=== PATIENT | male | born 1965 | race Caucasian/White ===

== ENCOUNTER 2024-04-16 01:10 | Emergency (ER) | payer OTHER ==
[~2024-04-16] VITALS: Ht 172.7 cm; Wt 98.0 kg
[~2024-04-16 01:10] MED LIST: AUGMENTIN 875-1 EACH PO; CARBAMAZEPINE200 MG PO; OSTEO BI-FLEX1 EACH PO; PROMETHAZINE-COD5 ML PO; SUDOGEST60 MG PO; ZOCOR40 MG PO
[2024-04-16] MEDS ORDERED: LEVOTHYROXINE75 MCG PO (01:31)
[2024-04-16] MEDS ORDERED: ATORVASTATIN CA80 MG PO (01:31)
[2024-04-16] MEDS ORDERED: FLUTICASONE PRO12 GM INH (01:32)
[2024-04-16] MEDS ORDERED: KETOROLAC TROMETHAMINE 15 MG/ML VIAL IV ONE (01:45)
[2024-04-16] MEDS ORDERED: LACTATED RINGER'S 1,000 ML IV ONE (01:45)
[2024-04-16] MEDS ORDERED: FAMOTIDINE 20 MG/ 2 ML VIAL IV ONE (01:45)
[2024-04-16 02:03] LABS: HEMATOCRIT 47.6 % (35.0-50.0); HEMOGLOBIN 16.3 g/dL (12.0-18.0); MCH 32.2 (27-36); MCHC 34.2 g/dl (30-36); MCV 94.3 fl (81-99); PLATELET COUNT 401 K/uL (140-440); RBC 5.04 M/ul (4.3-5.7)
[2024-04-16 02:19] LABS: ALBUMIN 3.5 g/dL (3.4-5.0); ALBUMIN/GLOBULIN RATIO 0.8 (1.1-2.4); ANION GAP 10.8 (7-21); BILIRUBIN, TOTAL 0.5 ng/dL (0.2-1.0); BUN/CREATININE RATIO 9.67 (6.0-28.6); CALCIUM 9.2 mg/dL (8.5-10.1); CREATININE, SERUM 1.24 mg/dL (0.70-1.30); POTASSIUM 3.8 mmol/L (3.5-5.1); PROTEIN, TOTAL 7.9 g/dL (6.4-8.2)
[2024-04-16 02:21] LABS: BASOPHILS, MANUAL DIFF 1; EOSINOPHILS, MANUAL DIFF 1; LYMPHOCYTES, MANUAL DIFF 24; MONOCYTES, MANUAL DIFF 12; NEUTROPHILS, MANUAL DIFF 62
[2024-04-16] MEDS ORDERED: levoFLOXacin 750 MG TAB PO ONE (03:15)
[2024-04-16] MEDS ORDERED: metroNIDAZOLE 250 MG TAB PO ONE (03:15)
[2024-04-16] MEDS ORDERED: METRONIDAZOLE500 MG PO (03:17)
[2024-04-16] MEDS ORDERED: LEVOFLOXACIN750 MG PO (03:17)
[2024-04-16 03:25] LABS: BILIRUBIN, URINE NEGATIVE (negative); BLOOD/HGB, URINE TRACE-I (Negative); KETONE, URINE NEGATIVE (Negative); LEUK ESTERASE, URINE NEGATIVE (negative); NITRITE, URINE NEGATIVE (negative); PH, URINE 5.5 (5-7)
[2024-04-16 03:30] VITALS: BP 128/68
[2024-04-16 03:32] LABS: BACTERIA, URINE RARE /hpf (negative); CASTS, URINE NONE SEEN \\lpf; COLLECTION TYPE, URINE CLEAN CATCH; CRYSTALS, URINE NONE SEEN (0-1+); EPITHELIAL CELLS, URINE SQUAMOUS 1+ /lpf (0-1+); REFLEX CULTURE, URINE No (No); WHITE BLOOD CELLS, URINE 0-1 /HPF (0-5)
== END 2024-04-16 03:30 | disposition home or self-care (01) ==
LOC: ED 01:10
PROVIDERS: Internal Medicine
DX: K57.32 Diverticulitis of large intestine without perforation or abscess without bleeding (principal); J18.9 Pneumonia, unspecified organism; E78.00 Pure hypercholesterolemia, unspecified; Z79.890 Hormone replacement therapy; Z79.899 Other long term (current) drug therapy
CPT/HCPCS: 36415; 71045; 74170; 80053; 81001; 83690; 85025; 96361; 96375; 99284-25; J1885; J7121; Q9967

== ENCOUNTER 2024-05-12 11:25 | Day surgery (SDC) | payer OTHER ==
[~2024-05-12] VITALS: Ht 172.7 cm; Wt 95.5 kg
[~2024-05-12 11:25] MED LIST changes: +ATORVASTATIN CA80 MG PO; +CEFAZOLIN SODIUM 2 GM/20 ML SYR IV SCH; +FLUTICASONE PRO12 GM INH; +IBLOOD GLUCOSE TEST STRIP 1 EA TEST VI PRN; +LACTATED RINGER'S 1,000 ML IV SCH; +LEVOFLOXACIN750 MG PO; +LEVOTHYROXINE75 MCG PO; +LIDOCAINE HCL 1% 5 ML SDV INJ ONE; +METRONIDAZOLE500 MG PO; +MIDAZOLAM HCL 5 MG/5 ML VIAL IV PRN; +fentaNYL citrate 100 MCG/2 ML VIAL IV PRN
[2024-05-12 11:40] VITALS: BP 115/73
[2024-05-12] MEDS ORDERED: VENTOLIN HFA18 GM INH (11:44)
[2024-05-12] MEDS ORDERED: MIDAZOLAM HCL 5 MG/5 ML VIAL ONE (12:07)
[2024-05-12] MEDS ORDERED: fentaNYL citrate 100 MCG/2 ML VIAL ONE (12:07)
--- NOTE | 2024-05-12 13:20 | NUR ---
05/12/24 1320 Aki,Christelle 1312 PT ARRIVED TO PACU ON 2L VIA NC, PT WAKES EASILY AND DENIES CONCERNS. PLAN OF CARE DISCUSSED AND PT EASILY FALLS BACK TO SLEEP. VSS.
[2024-05-12 13:53] VITALS: BP 117/88
--- NOTE | 2024-05-12 14:05 | OR ---
[facility] [address] [place], [place] [address] Signed DATE OF OPERATION: 05/12/2024 SURGEON: Edel Valentine MD PREOPERATIVE DIAGNOSIS: Colon screening. POSTOPERATIVE DIAGNOSIS: Polyps x5. ANESTHESIA: Intravenous sedation, fentanyl 100 mcg and Versed 5 mg. INDICATIONS FOR THE PROCEDURE: This 58-year-old white man is a patient of Dr. Giuliano Dela Cruz. He last underwent colonoscopy in the [place] area between 15 and 20 years ago and may or may not have had colonoscopy in [place] in 1987, he is uncertain. He has no current symptoms of bleeding, diarrhea, or cancer and no family history of colon cancer. He does have a brother who has had polyps. He is admitted at this time to undergo screening colonoscopy. He understands the risk of bleeding, infection, and perforation. FINDINGS: The prep was quite good. Complete colonoscopy was undertaken of the cecum without question. He had five polyps in total, one in the right colon, one in the sigmoid and other rectosigmoid and two in the rectum. There were scattered diverticula as well. There was no evidence of stricture or colitis. DESCRIPTION OF PROCEDURE: The patient was brought to the endoscopy suite and placed in the lateral decubitus position given intravenous sedation to the point of slurred speech and nystagmus with full cardiopulmonary monitoring. Digital rectal examination was normal. Olympus video colonoscope was passed into the rectum and manipulated throughout the colon, ultimately intubating the cecum itself. The ileocecal valve and appendiceal orifice were normal. Scope was withdrawn and in the mid ascending colon, there was a small polyp, which was excised with cold morcellation technique. Further withdrawal showed no abnormality until the left colon and sigmoid area where a small polyp was noted, this was excised with cold morcellation technique as well. Further withdrawal showed another polyp in the rectosigmoid area and get another in the mid and ultimately the low rectum, all of which were excised with cold Electronically Signed By: EDEL VALENTINE MD 05/12/24 1405 PATIENT NAME: CECILIO COSTA OPERATIVE REPORT DATE OF : 61 REPORT #: [id number] PHYSICIAN: EDEL VALENTINE MD PCP: GIULIANO DELA CRUZ MD REPORT IS CONFIDENTIAL AND NOT TO BE RELEASED WITHOUT AUTHORIZATION [facility] [address] [place] [id number] Signed morcellation technique. In aggregate five polyps were excised. Retroflexed view was otherwise normal. The scope was removed. The patient was taken to the recovery room in good condition. CONCLUDING DIAGNOSIS: Small polyps x5. PLAN: Recommend repeat colonoscopy in 5 years or sooner if clinically indicated. He will return to the ongoing care of Dr. Giuliano Dela Cruz. MD ANGELES Robins/SHELTON /[id number] cc: Giuliano Dela Cruz MD Copies: GIULIANO DELA CRUZ DMD ~ Electronically Signed By: EDEL VALENTINE MD 05/12/24 1405 PATIENT NAME: CECILIO COSTA OPERATIVE REPORT DATE OF : 61 REPORT #: [id number] PHYSICIAN: EDEL VALENTINE MD PCP: GIULIANO DELA CRUZ MD REPORT IS CONFIDENTIAL AND NOT TO BE RELEASED WITHOUT AUTHORIZATION
--- NOTE | 2024-05-14 10:28 | PATH ---
[facility] [address] [facility] [place], [place] [address] Signed SPECIMEN(S): A ASCENDING COLON POLYP SPECIMEN(S): B SIGMOID POLYP SPECIMEN(S): C RECTOSIGMOID POLYP SPECIMEN(S): D RECTAL POLYP SPECIMEN(S): E RECTAL POLYP SPECIMEN SOURCE: A. ASCENDING COLON POLYP B. SIGMOID POLYP C. RECTOSIGMOID POLYP D. RECTAL POLYP E. RECTAL POLYP v CLINICAL HISTORY: Pre-op diverticulosis, postop: Polyps. FINAL PATHOLOGIC DIAGNOSIS: A. Colon, ascending, polypectomy: - Sessile serrated polyp - Tubular adenoma B. Colon, sigmoid, polypectomy: - Colonic mucosa with no significant pathologic changes C. Colon, rectosigmoid, polypectomy: - Hyperplastic polyp D. Rectum, polypectomy: - Hyperplastic polyp E. Rectum, polypectomy: - Hyperplastic polyp BRP MICROSCOPIC EXAMINATION: Histologic sections of all submitted blocks are examined by light microscopy. These findings, together with the gross examination, support the pathologic diagnosis. GROSS DESCRIPTION: A. The specimen, labeled and designated "Mykel Kline, ascending colon polyp," is received in formalin and consists of nine torres soft tissue fragments, ranging from 0.2-0.3 cm. Entirely submitted in (A1). PATIENT NAME: CECILIO KLINE PATHOLOGY DATE OF : 61 REPORT #: [id number] PHYSICIAN: CARLENE STEHPENS PCP: GIULIANO DELA CRUZ MD REPORT IS CONFIDENTIAL AND NOT TO BE RELEASED WITHOUT AUTHORIZATION [facility] [address] [place], [place] [address] Signed B. The specimen, labeled and designated "Kline, T, sigmoid polyp," is received in formalin and consists of three torres soft tissue fragments, ranging from 0.2-0.3 cm. Entirely submitted in (B1). C. The specimen, labeled and designated "Kline, T, rectosigmoid polyp," is received in formalin and consists of two torres soft tissue fragments, ranging from 0.3-0.4 cm. Entirely submitted in (C1). D. The specimen, labeled and designated "Kline, T, rectal polyp," is received in formalin and consists of four torres soft tissue fragments, ranging from 0.1-0.3 cm. Entirely submitted in (D1). E. The specimen, labeled and designated "Kline, T, rectal polyp #2," is received in formalin and consists of three torres soft tissue fragments, ranging from 0.2-0.3 cm. Entirely submitted in (E1). AB (under the direct supervision of a pathologist) The Gross Description was prepared using a voice recognition system. The report was reviewed for accuracy; however, sound-alike word errors, addition and/or deletions may occur. If there is any question about this report, please contact Client Services. ADDITIONAL NOTES: Immunohistochemical and/or in situ hybridization studies if performed in this case included appropriate positive controls that reacted as expected. This test was developed and its performance characteristics determined by [facility]. It has not been cleared or approved by the U.S. Food and Drug Administration. The FDA has determined that such clearance or approval is not necessary. This test is used for clinical purposes. It should not be regarded as investigational or for research. [facility] is certified under the Clinical Laboratory Improvement Amendments of 1988 (CLIA) as qualified to perform high complexity clinical laboratory testing. PERFORMING LABORATORY: Technical component was performed by [email or web address], [address] [place] [id number] (CLIA# [id number]). Professional interpretation was performed by [email or web address] - [facility], [address] [place] [id number] (CLIA#: [id number]). Diagnostician: Galen Canada MD Pathologist Electronically Signed 05/14/2024 PATIENT NAME: CECILIO KLINE MARÍA PATHOLOGY DATE OF : 61 REPORT #: [id number] PHYSICIAN: CARLENE PATHOLOGY PCP: GIULIANO DELA CRUZ MD REPORT IS CONFIDENTIAL AND NOT TO BE RELEASED WITHOUT AUTHORIZATION [facility] [address] [place] [address] [place], [place] [address] Signed Copies: ~ PATIENT NAME: KLINECECILIO REYNOLDS MARÍA PATHOLOGY DATE OF : 61 REPORT #: [id number] PHYSICIAN: CARLENE PATHOLOGY PCP: GIULIANO DELA CRUZ MD REPORT IS CONFIDENTIAL AND NOT TO BE RELEASED WITHOUT AUTHORIZATION
== END 2024-05-12 14:05 | disposition home or self-care (01) ==
LOC: DS 11:25
PROVIDERS: ATTEND Surgery
PROC: 0DBN8ZZ Excision of Sigmoid Colon, Via Natural or Artificial Opening Endoscopic (ICD-10-PCS; 2024-05-12)
PROC: 0DBP8ZZ Excision of Rectum, Via Natural or Artificial Opening Endoscopic (ICD-10-PCS; 2024-05-12)
PROC: 0DBF8ZZ Excision of Right Large Intestine, Via Natural or Artificial Opening Endoscopic (ICD-10-PCS; principal; 2024-05-12 12:30)
DX: Z12.11 Encounter for screening for malignant neoplasm of colon (principal); D12.2 Benign neoplasm of ascending colon; K63.5 Polyp of colon; K62.1 Rectal polyp; K57.30 Diverticulosis of large intestine without perforation or abscess without bleeding; E03.9 Hypothyroidism, unspecified; E78.5 Hyperlipidemia, unspecified; Z79.899 Other long term (current) drug therapy; Z90.81 Acquired absence of spleen; Z83.719 Family history of colon polyps, unspecified
CPT/HCPCS: 99153; G0500; J0690; J2250; J3010; J7121